=== PATIENT | female | born 1970 | race Caucasian/White ===

== ENCOUNTER 2017-05-24 07:24 | Emergency (ER) | payer SELFPAY ==
[~2017-05-24] VITALS: Ht 165.1 cm; Wt 90.7 kg
[2017-05-24 07:45] VITALS: Ht 165.1 cm; Wt 90.7 kg
[2017-05-24 08:36] VITALS: BP 123/79
== END 2017-05-24 08:36 | disposition home or self-care (01) ==
LOC: ED 07:24
DX: J02.9 Acute pharyngitis, unspecified (principal)
CPT/HCPCS: J1885